=== PATIENT | female | born 1955 | race Caucasian/White ===

== ENCOUNTER 2021-11-29 00:54 | Day surgery (SDC) | payer MEDICARE, SELFPAY ==
[2021-11-08 14:14] VITALS: BMI 34.0
[2021-11-29 08:53] VITALS: BP 101/83; PULSE 86; RESP 20; TEMP 36.9; O2SAT 100
[2021-11-29] MEDS: LACTATED RINGERS 1,000 ML 150 ML IV CONT (09:03)
--- NOTE | 2021-11-29 09:11 | P.PNAN_ITS ---
Anes - Initial Pre Proc Eval Procedure: Operation Date: 11/29/21 10:00 Proposed Procedures p Screening Colonoscopy - Mesfin Gomez MD Date/Time: 11/29/21 09:11 Surgeon: Mesfin Gomez MD Pre Op Diagnosis: neoplasm screening Patient Data Age: 66 Gender: F Height: 1.63 m Weight: 91.5 kg Last Vital Signs Temp 36.9 C 11/29/21 08:53 Pulse 86 11/29/21 08:53 Resp 20 11/29/21 08:53 BP 101/83 11/29/21 08:53 Pulse Ox 100 11/29/21 08:53 O2 Del Method Room Air 11/29/21 08:53 Allergies Allergy/AdvReac Type Severity Reaction Status Date / Time ciprofloxacin Allergy Unknown joint pain Verified 11/29/21 08:51 Home Medications Medication Instructions Recorded Confirmed Type methimazole 5 mg tablet 2.5 mg PO .qd #90 tabs 01/04/21 11/08/21 Rx omeprazole 20 mg capsule,delayed 20 mg PO BID #180 caps 01/04/21 11/08/21 Rx release lisinopril 20 1 tablet PO DAILY #90 tabs 10/25/21 11/08/21 Rx mg-hydrochlorothiazide 12.5 mg tablet Patient hx anesthesia problems: none Family hx anesthesia problems: none Results Review: All pre-operative results and documents have been reviewed as part of the pre- operative evaluation. [facility] Past Medical History Medical History (Updated 11/29/21 @ 09:12 by José Antonio Luis MD) Basal cell carcinoma of skin of unspecified parts of face Essential (primary) hypertension Facial basal cell cancer Family history of colonic polyps GERD with esophagitis Obesity (BMI 35.0-39.9 without comorbidity) Osteoporosis Retinal vascular occlusion, unspecified Spondylosis without myelopathy or radiculopathy, cervical region Transient global amnesia Surgical History Surgical History History of hand surgery (~1989) History of hysterectomy (~2001) Family History Family History Mother Family history of cardiac disorder Sibling Family history of malignant neoplasm of breast in first degree relative Other Hypertension Social History Social History Alcohol intake: current Alcohol use details: on occassion Substance use: never Living arrangements: with family Spiritual care concerns: No Anes - Eval Final PreProcedure Day of Procedure 11/29/21 09:11 Patient weight: obese Heart: regular rate and rhythm Lungs: clear to auscultation and normal air movement Airway: Mallampati scale class II Neurological: alert and oriented Last oral intake: >/= 8 hours ASA classification: III Emergent: no Anesthetic plan: proceed Anesthesia type and monitoring: general GIVS Results Review: All pre-operative results and documents have been reviewed as part of the pre- operative evaluation. Informed Consent: The patient's anesthetic plan and its attendant risks and benefits were discussed with the patient/family/POA. Questions were solicited and answers provided to the satisfaction of the patient/family/POA.
--- NOTE | 2021-11-29 09:28 | WPDGICN ---
Assessment and Plan Assessment and plan (1) Encounter for screening colonoscopy: Code(s): Z12.11 - Encounter for screening for malignant neoplasm of colon Status: Acute Assessment and Plan: Patient presents today for screening colonoscopy. She appears to be at average risk for colon polyps. GI Consult Note Consult date/time: 11/29/21 09:28 Reason for consult: neoplasia screening. HPI: Mamie Delgado is a 66 year old female Presents for screening colonoscopy. Patient's current weight appetite and bowel movements are normal. She denies abdominal pain. Patient has had no bleeding. Family history is noncontributory. Patient's last colonoscopy was 10 years ago she presents today for neoplasia screening colonoscopy. Review of Systems Review of Systems: Review of systems is noncontributory. [facility] Past Medical History Medical History (Updated 11/29/21 @ 09:29 by Mesfin Gomez MD) Basal cell carcinoma of skin of unspecified parts of face Essential (primary) hypertension Facial basal cell cancer Family history of colonic polyps GERD with esophagitis Obesity (BMI 35.0-39.9 without comorbidity) Osteoporosis Retinal vascular occlusion, unspecified Spondylosis without myelopathy or radiculopathy, cervical region Transient global amnesia Surgical History Surgical History History of hand surgery (~1989) History of hysterectomy (~2001) Family History Family History Mother Family history of cardiac disorder Sibling Family history of malignant neoplasm of breast in first degree relative Other Hypertension Social History Social History Alcohol intake: current Alcohol use details: on occassion Substance use: never Living arrangements: with family Spiritual care concerns: No Meds Home Medications and Allergies Home Medications Medication Instructions Recorded Confirmed Type methimazole 5 mg tablet 2.5 mg PO .qd #90 tabs 01/04/21 11/08/21 Rx omeprazole 20 mg capsule,delayed 20 mg PO BID #180 caps 01/04/21 11/08/21 Rx release lisinopril 20 1 tablet PO DAILY #90 tabs 10/25/21 11/08/21 Rx mg-hydrochlorothiazide 12.5 mg tablet Allergies Allergy/AdvReac Type Severity Reaction Status Date / Time ciprofloxacin Allergy Unknown joint pain Verified 11/29/21 08:51 Vital Signs Vital Signs - 24 hr 11/29/21 08:53 Temperature 98.5 F Pulse Rate 86 Respiratory Rate 20 Blood Pressure 101/83 Pulse Oximetry 100 Oxygen Delivery Room Air Exam Narrative: Physical exam reveals patient to be alert. Vital signs stable. HEENT exam is unremarkable. Patient is anicteric. Lungs are clear to auscultation and percussion. Heart is without murmur or extra sounds. Abdominal exam bowel sounds are present soft nontender with no organomegaly. Digital external rectal exam is normal.
[2021-11-29 10:09] VITALS: BP 101/64; PULSE 74; RESP 18; O2SAT 100
[2021-11-29 10:19] VITALS: BP 107/60; PULSE 75; RESP 18; O2SAT 98
[2021-11-29 10:29] VITALS: BP 115/72; PULSE 73; RESP 23; O2SAT 98
== END 2021-11-29 10:39 | disposition home or self-care (01) ==
PROVIDERS: PCP Family Medicine; Visit Provider Internal Medicine Gastroenterology
PROC: 0DJD8ZZ Inspection of Lower Intestinal Tract, Via Natural or Artificial Opening Endoscopic (ICD-10-PCS; CPT 45378; principal; 2021-11-29 10:00)
DX: Z12.11 Encounter for screening for malignant neoplasm of colon (principal); K64.8 Other hemorrhoids; K57.30 Diverticulosis of large intestine without perforation or abscess without bleeding; I10 Essential (primary) hypertension; K21.9 Gastro-esophageal reflux disease without esophagitis; M81.0 Age-related osteoporosis without current pathological fracture; M47.812 Spondylosis without myelopathy or radiculopathy, cervical region; E66.9 Obesity, unspecified; Z68.34 Body mass index [BMI] 34.0-34.9, adult
CPT/HCPCS: G0121; J2704; J7120

== ENCOUNTER 2023-06-05 08:15 | Outpatient (CLI) | payer MEDICARE, SELFPAY ==
--- NOTE | ~2023-06-05 | CT_ITS ---
CT of the Abdomen and Pelvis: Indication: Hematuria Technique: 2.5 mm axial scans were obtained through the abdomen and pelvis prior to and following in travenous administration of 130 cc of Omnipaque 350. Dose reduction technique was used on this scan b y utilizing automated exposure control and iterative reconstruction technique. The dose-length produc t (DLP) was 2576.59 mGy-cm. Findings: Scans through the lung bases are unremarkable. The liver, spleen, pancreas, gallbladder, adrenals and kidneys are within normal limits. No evidence of aortic aneurysm. No lymphadenopathy. No bowel obstruction or bowel wall thickening. There is no evidence to suggest acute appendicitis. Images through the pelvis were performed. Urinary bladder unremarkable. No pelvic mass evident. No as cites. Impression: No significant abnormality seen. No etiology for hematuria identified. Reviewed, dictated and finalized at [facility]. [employer] Impression: No significant abnormality seen. No etiology for hematuria identified.
[2023-06-05 08:38] LABS: Estimated Glomerular Filt Rate 49
== END 2023-06-05 08:16 | disposition home or self-care (01) ==
PROVIDERS: PCP Family Medicine; Visit Provider Physician Assistant
DX: R31.0 Gross hematuria (principal)
CPT/HCPCS: 74178; Q9967

== ENCOUNTER 2024-04-01 11:55 | Outpatient (CLI) | payer MEDICARE, SELFPAY ==
[2024-04-01 14:20] LABS: Anion Gap 11 mmol/L (4-12); Blood Urea Nitrogen 14 mg/dL (7-17); Calcium 9.5 mg/dL (8.4-10.2); Carbon Dioxide 28 mmol/L (22-30); Chloride 99 mmol/L (98-107); Estimated Glomerular Filt Rate > 60; Glucose 83 mg/dL (65-110); Potassium 3.1 mmol/L (3.4-5.0); Sodium 138 mmol/L (137-145)
== END 2024-04-01 11:56 | disposition home or self-care (01) ==
LOC: ANHSURGERY 12:00
PROVIDERS: Anesthesiology; PCP Family Medicine; Visit Provider Urology
DX: Z51.81 Encounter for therapeutic drug level monitoring (principal)
CPT/HCPCS: 36415; 80048

== ENCOUNTER 2024-04-05 00:06 | Day surgery (SDC) | payer MEDICARE, SELFPAY ==
[2024-03-29 15:36] VITALS: BMI 29.9
--- NOTE | 2024-03-29 15:54 | PC.NURSE ---
Report to the Outpatient Waiting Room, entrance under the green pavilion located off [facility], at time ___6:00AM____ on date ___04/05/24____. Planned Procedure Time: ____7:30AM____.? Time changes happen often and if your time is changed the preop area will call you the afternoon before. - You and your visitor will be asked to self-screen and do not enter if you have any COVID symptoms. Please call surgeon if you need to reschedule. - A mask is optional within the hospital at this time. Patients may have clear liquids (water, carbonated beverages, clear teas, apple juice) until 3 hours prior to surgery with a maximum of 20 ounces. - No food from midnight until time of surgery and no smoking. Take only the following medications with a SIP of water on the morning of surgery: METHIMAZOLE DO NOT STOP ANY OF YOUR OTHER PRESCRIPTION MEDICATIONS PRIOR TO SURGERY EXCEPT THE FOLLOWING Medications to discontinue per physician HOLD WEGOVY 10 DAYS PRE-OP PER ANESTHESIA Date to take last dose 03/25/24 Please no make-up, nail khmer, hairspray, perfume, deodorant, or body powder the day of surgery.? No jewelry (including any body piercings) or valuables the day of surgery, leave them at home.? Please take a shower or bath the night before, or the morning of, surgery with an antibacterial soap.? Wear comfortable, loose fitting clothing.? - Jewelry must be removed prior to entering the operating room.? Rings and piercings that are not removed may be cut off. - The hospital will not accept responsibility for valuables.? - Please leave all valuables, including medications, at home the day of surgery. If you are going home after surgery, a licensed set key driver must drive you home.? - NO public transportation without another adult if you receive anesthesia. - We recommend that an adult stay with you for 24 hours following discharge. - We also recommend that you do not drive, make important decision, drink alcoholic beverages, or take any drugs that were not prescribed by your health care provider for at least 24 hours after your discharge time. Follow any additional instructions given to you from your surgeon. Telephone instructions given to ____PATIENT and asked if any additional questions and then verbalized understanding. Patient advised to call surgeon office or pre surgery nurse liaison [phone] if any additional questions.
--- NOTE | 2024-03-31 17:18 | PM.IMHP ---
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 Desires intervention in the form of a bulking agent Review of Systems Review of Systems: All systems reviewed & are unremarkable except as noted in HPI and below PMFSH Past Medical History Medical History Basal cell carcinoma of skin of unspecified parts of face Essential (primary) hypertension Facial basal cell cancer Family history of colonic polyps GERD with esophagitis Obesity (BMI 35.0-39.9 without comorbidity) Osteoporosis Retinal vascular occlusion, unspecified Spondylosis without myelopathy or radiculopathy, cervical region Transient global amnesia Surgical History Surgical History History of hand surgery (~1989) History of hysterectomy (~2001) Family History Family History Mother Family history of cardiac disorder Sibling Family history of malignant neoplasm of breast in first degree relative Other Hypertension Social History Social History Smoking status: Never smoker Alcohol intake: current Alcohol use details: on occassion Substance use: never Lack of Transportation: No Lack of Food: Sometimes True Current Housing: I Have Housing Concerned About Future Housing: No Difficulty Paying Gas/Electric Bills: No Difficulty Paying for Meds: No Currently Unemployed: No Education: High School Diploma/GED Difficulty w/ Childcare or Family Care: No Living arrangements: with family Additional living arrangements comments: HUSB Spiritual care concerns: No Meds Home Medications and Allergies Home Medications Medication Instructions Recorded Confirmed Type estradiol 0.01% (0.1 mg/gram) 1 appful vaginal DAILY PRN Vaginal 04/17/23 03/29/24 History vaginal cream Dryness omeprazole 20 mg capsule,delayed 20 mg PO DAILY #90 caps 10/16/23 03/29/24 Rx release methimazole 5 mg tablet 2.5 mg PO .qd #90 tabs 11/16/23 03/29/24 Rx semaglutide (weight loss) 1.7 See Rx Instructions .Route 03/19/24 03/29/24 Rx mg/0.75 mL subcutaneous pen .COMPLEX #3 mL injector ([employer]) lisinopril 20 1 tablet PO DAILY 03/29/24 03/29/24 History mg-hydrochlorothiazide 12.5 mg tablet Allergies Allergy/AdvReac Type Severity Reaction Status Date / Time ciprofloxacin AdvReac Unknown joint pain Verified 03/29/24 15:30 Exam Narrative: no acute distress normal breathing alert oriented x3 Assessment and Plan Assessment and plan (1) Intrinsic sphincter deficiency (ISD): Code(s): N36.42 - Intrinsic sphincter deficiency (ISD) Status: Acute Assessment and Plan: plan for bulking agent. Risks, benefits, alternatives are outlined in office chart
--- NOTE | 2024-04-04 14:18 | WPDANESEPPF ---
Anes - Initial Pre Proc Eval Procedure: Operation Date: 04/05/24 07:30 Proposed Procedures p Cystoscopy, Injection Bulking Agent - Josh Doss MD Date/Time: 04/04/24 14:18 Surgeon: Josh Doss MD Pre Op Diagnosis: stress incont, gross hematuria Patient Data Age: 68 Gender: F Height: 1.63 m Weight: 79 kg Allergies Allergy/AdvReac Type Severity Reaction Status Date / Time ciprofloxacin AdvReac Unknown joint pain Verified 03/29/24 15:30 Home Medications Medication Instructions Recorded Confirmed Type estradiol 0.01% (0.1 mg/gram) 1 appful vaginal DAILY PRN Vaginal 04/17/23 03/29/24 History vaginal cream Dryness omeprazole 20 mg capsule,delayed 20 mg PO DAILY #90 caps 10/16/23 03/29/24 Rx release methimazole 5 mg tablet 2.5 mg PO .qd #90 tabs 11/16/23 03/29/24 Rx semaglutide (weight loss) 1.7 See Rx Instructions .Route 03/19/24 03/29/24 Rx mg/0.75 mL subcutaneous pen .COMPLEX #3 mL injector ([employer]) lisinopril 20 1 tablet PO DAILY 03/29/24 03/29/24 History mg-hydrochlorothiazide 12.5 mg tablet Patient hx anesthesia problems: none Family hx anesthesia problems: none Results Review: All pre-operative results and documents have been reviewed as part of the pre-operative evaluation. [facility] Past Medical History Medical History (Updated 04/04/24 @ 14:19 by Demetri Pope DO) Basal cell carcinoma of skin of unspecified parts of face Essential (primary) hypertension Facial basal cell cancer Family history of colonic polyps GERD with esophagitis Hyperthyroidism Obesity (BMI 35.0-39.9 without comorbidity) Osteoporosis Retinal vascular occlusion, unspecified Spondylosis without myelopathy or radiculopathy, cervical region Transient global amnesia Surgical History Surgical History History of hand surgery (~1989) History of hysterectomy (~2001) Family History Family History Mother Family history of cardiac disorder Sibling Family history of malignant neoplasm of breast in first degree relative Other Hypertension Social History Social History Smoking status: Never smoker Alcohol intake: current Alcohol use details: on occassion Substance use: never Lack of Transportation: No Lack of Food: Sometimes True Current Housing: I Have Housing Concerned About Future Housing: No Difficulty Paying Gas/Electric Bills: No Difficulty Paying for Meds: No Currently Unemployed: No Education: High School Diploma/GED Difficulty w/ Childcare or Family Care: No Living arrangements: with family Additional living arrangements comments: HUSB Spiritual care concerns: No Anes - Eval Final PreProcedure Day of Procedure 04/04/24 14:18 Patient weight: overweight Heart: regular rate and rhythm Lungs: clear to auscultation Airway: Mallampati scale class II Neurological: alert and oriented Last oral intake: >/= 8 hours ASA classification: III Emergent: no Anesthetic plan: proceed Anesthesia type and monitoring: general GIVS and standard monitoring Results Review: All pre-operative results and documents have been reviewed as part of the pre-operative evaluation. Informed Consent: The patient's anesthetic plan and its attendant risks and benefits were discussed with the patient/family/POA. Questions were solicited and answers provided to the satisfaction of the patient/family/POA.
--- NOTE | 2024-04-05 04:20 | WPDHPUPDATE1 ---
History and Physical Update Update Date/Time: 04/05/24 04:20 History and Physical has been reviewed, including an updated exam of the patient. There are NO changes in the patient's condition. Risks, benefits, and alternatives have been discussed and questions answered. Patient agrees to proceed with procedure.
[2024-04-05 07:00] VITALS: BP 134/72; PULSE 66; RESP 14; TEMP 36.1; O2SAT 100
[2024-04-05] MEDS: LACTATED RINGERS 1,000 ML 30 ML IV CONT (07:00)
[2024-04-05] MEDS: ceFAZolin 2 GM/D5W 50 ML 2 GM/50 ML BAG IVPB (07:29)
[2024-04-05] MEDS: LIDOCAINE HCL 2% GEL UROJET 10 ML PKG MUCOUS MEM (07:42)
--- NOTE | 2024-04-05 07:47 | P.OP_ITS ---
Procedure Note - Detailed Date of Procedure 04/05/24 Pre-op Diagnosis Intrinsic sphincter deficiency Post-op Diagnosis Same Procedure Performed Cystoscopy with suburethral injection of implant material/bulking agent Surgeon Josh Doss MD Anesthesia MAC and Local (Uro jet) Indications This formal stress incontinence due to intrinsic sphincter deficiency. She was offered both bulking agents and sling. She would like a less invasive bulking agent. She understands the risks of bleeding, infection, incomplete bladder emptying. She understands it may need to be repeated. We discussed success rates. She understands that the procedure will wear off any repeated over time. She understands the risk of catheterization. She agrees to proceed Findings Uncomplicated bulking agent Description of Procedure She was correctly identified. Informed consent obtained. She from the operating room. She was given monitored anesthesia care. She was placed in dorsal lithotomy position. She was prepped and draped sterile fashion. Time- out was performed. Uro jet was applied. Examination revealed evidence of lichen sclerosus and atrophic vaginitis. On cystoscopy she had normal appearing bladder without abnormalities. No tumors and stones. Urethra was open consistent intrinsic sphincter deficiency. I chose a site in the mid urethra 2 cm distal bladder neck. I injected bulking agent circumferentially. I used both syringes of bulking material I formed several pillows collapsing urethra. There was excellent bulking effect. The conclusion the bladder was left partially full. She was awakened transferred to PACU in stable condition. Estimated Blood Loss 0 Pathology None sent Complications No immediate complications Condition Stable Disposition PACU
[2024-04-05 07:48] VITALS: BP 159/97; PULSE 73; RESP 16
[2024-04-05 08:15] VITALS: BP 148/82; PULSE 70
[2024-04-05 08:45] VITALS: BP 147/74; PULSE 57
== END 2024-04-05 09:10 | disposition home or self-care (01) ==
PROVIDERS: PCP Family Medicine; Visit Provider Urology
PROC: 3E0K8GC Introduction of Other Therapeutic Substance into Genitourinary Tract, Via Natural or Artificial Opening Endoscopic (ICD-10-PCS; CPT 51715; principal; 2024-04-05 07:30)
DX: N36.42 Intrinsic sphincter deficiency (ISD) (principal); N39.3 Stress incontinence (female) (male); I10 Essential (primary) hypertension; K21.9 Gastro-esophageal reflux disease without esophagitis; M81.0 Age-related osteoporosis without current pathological fracture; M47.812 Spondylosis without myelopathy or radiculopathy, cervical region; G45.4 Transient global amnesia; E05.90 Thyrotoxicosis, unspecified without thyrotoxic crisis or storm; Z79.85 Long-term (current) use of injectable non-insulin antidiabetic drugs; Z98.890 Other specified postprocedural states; Z85.828 Personal history of other malignant neoplasm of skin; Z83.719 Family history of colon polyps, unspecified; Z80.3 Family history of malignant neoplasm of breast; Z82.49 Family history of ischemic heart disease and other diseases of the circulatory system
CPT/HCPCS: 51715; J0690; J2003; J2704; J7120; L8606